=== PATIENT | male | born 1960 | race Caucasian/White ===

== ENCOUNTER 2023-12-30 09:28 | Outpatient (OUT) | payer OTHER, SELFPAY ==
--- NOTE | 2023-12-30 | XR_ITS ---
[facility] [address] Patient Name: RANDOLPH KINNEY MRN: [id number] date: 1960 Sex: M Assigned Patient Location: Current Patient Location: Accession/Order Number: [id number] Exam Date: 12/30/2023 09:42 Report Date: 12/31/2023 13:11 At the request of: MARTY VICK Procedure: XR ankle LT min 3V PROCEDURE: XR ankle LT min 3V HISTORY: LEFT ANKLE PAIN , chronic COMPARISON: None. FINDINGS: BONES:Narrowing of the joint space between the talus and medial malleolus. No fracture, dislocation, bone lesion. No appreciable subchondral cysts or sclerosis. SOFT TISSUES:No visible soft tissue swelling. EFFUSION:None visible. OTHER: Negative. XR/XR ankle LT min 3V IMPRESSION: 1. No acute bone abnormality. 2. There appears to be narrowing of the medial aspect of the joint space suggesting cartilage thinning. Consider MRI for further evaluation. Electronically authenticated by: SIMI VILLASEÑOR Date: 12/31/2023 13:11
== END 2023-12-30 09:29 | disposition home or self-care (01) ==
LOC: EC 09:28
PROVIDERS: Visit Provider Podiatrist Foot & Ankle Surgery
DX: M25.572 Pain in left ankle and joints of left foot (principal)
CPT/HCPCS: 73610